=== PATIENT | male | born 1975 | race Caucasian/White ===

== ENCOUNTER 2016-05-02 15:57 | Emergency (ER) | payer SELFPAY ==
[~2016-05-02] VITALS: Ht 182.9 cm; Wt 77.1 kg
== END 2016-05-02 17:07 | disposition left against medical advice (07) ==
LOC: ER 15:57 → EDUNIT# 15:57 → EDBD 15:57 → ER 17:07
DX: R51 Headache (principal); F10.10 Alcohol abuse, uncomplicated; Z53.21 Procedure and treatment not carried out due to patient leaving prior to being seen by health care provider; V43.52XA Car driver injured in collision with other type car in traffic accident, initial encounter; Y93.89 Activity, other specified; Y92.89 Other specified places as the place of occurrence of the external cause; Y99.8 Other external cause status

== ENCOUNTER 2018-10-04 10:43 | Emergency (ER) | payer SELFPAY ==
[~2018-10-04] VITALS: Ht 182.9 cm; Wt 76.7 kg
[2018-10-04 10:50] VITALS: BP 139/85
[2018-10-04 12:02] LABS: Urine Bacteria FEW /hpf (None Seen); Urine Blood Negative /uL (Negative); Urine Specific Gravity 1.024 (1.001-1.035); Urine WBC 20 /hpf (0 - 3)
[2018-10-04] MEDS ORDERED: cefTRIAXone SODIUM 250 MG VL IM ONE (12:15)
== END 2018-10-04 12:35 | disposition home or self-care (01) ==
LOC: ER 10:43
DX: N43.3 Hydrocele, unspecified (principal); N45.1 Epididymitis; F17.210 Nicotine dependence, cigarettes, uncomplicated; Z88.0 Allergy status to penicillin; Z91.018 Allergy to other foods
CPT/HCPCS: 76870; 81001; 96372; 99284; J0696